=== PATIENT | male | born 1955 | race Caucasian/White ===

== ENCOUNTER 2025-05-18 09:30 | Observation (INO) ==
--- NOTE | 2025-05-18 09:38 | Emergency Department Note ---
Impression & Plan Hypotension, Syncope, SHEY (acute kidney injury) ED Provider Note NAME: OLGA DAMIAN AGE: 70 SEX: M : 1955 ARRIVES VIA: Ambulance INFORMANT: Patient ED PROVIDER(S): Ever Rivers DO CHIEF COMPLAINT: Syncope HPI: Patient is a 70-year-old male who presents to the ER for a syncopal episode. He notes that he got up and stood up and felt very lightheaded and passed out. He admits to feeling foggy in the head. No neck pain. No chest pain or shortness of breath. No belly pain. No nausea at this time but did have nausea and vomiting after this occurred. Denies any dysuria, urgency or frequency. No other exacerbating or remitting factors. ADDITIONAL HISTORY OBTAINED: Per HPI Chronic Medical/Social Conditions Affecting Care: Per HPI PAST MEDICAL HISTORY:See Below PAST SURGICAL HISTORY:See Below FAMILY HISTORY:See Below SOCIAL HISTORY:See Below HOME MEDICATIONS:See Below ALLERGIES:See Below VITALS:See Below PHYSICAL EXAMINATION: GENERAL: Sitting up in bed, alert, well appearing, well nourished, no distress, non-toxic HEAD: NC/AT EYE EXAM: normal conjunctiva. PERRL and EOM's grossly intact. OROPHARYNX: no exudate, no erythema, lips, buccal mucosa, and tongue normal and mucous membranes are moist NECK: supple, no nuchal rigidity, no adenopathy, non-tender LUNGS: Clear to auscultation. Normal chest wall mechanics HEART: no murmurs, S1 normal and S2 normal ABDOMEN: abdomen soft, non-tender, normo-active bowel sounds, no masses, no rebound or guarding. BACK: Back is symmetrical on inspection and there is no deformity, no midline tenderness, no CVA tenderness. SKIN: no rashes and no bruising UPPER EXTREMITIES: upper extremities are grossly normal. LOWER EXTREMITIES: No pitting edema. NEURO EXAM: Normal sensorium, cranial nerves II-XII intact, normal speech, no weakness of arms, no weakness of legs. No drift. Finger to nose intact. Gross sensation intact. MEDICAL DECISION MAKING: Patient is a 70-year-old male with a past medical history of syncope who presents ER for the above-stated complaint. Additional history was obtained from EMS. Patient was hypotensive upon their arrival in the 60s. IV was established and blood work was obtained here. Labs showed no significant leukocytosis or anemia. BMP with slightly elevated BUN. Creatinine 1.8 with no previous to go off of. LFTs bilirubin and troponin was negative. Pro-Jamil was normal. CT of the head cervical spine and chest showed a pulmonary nodule/possible infectious etiology. Patient was covered with IV antibiotics. He was given total of 2-1/2 L of IV fluids while in the ER. Blood pressures trended up to the 90s to low 100s and gradually improved from the 70s. Maps were appropriate of 65-70 during this. Case was discussed with the hospitalist for further evaluation management treatment. Consults/Care Managements Discussions: Per [facility] Triage Nursing notes reviewed. Limited review of prior medical records performed Vital Signs: reviewed and remarkable for no significant abnormalities Differential diagnosis: Differential diagnosis includes etiologies such as vasovagal event, infection, hypoglycemia, electrolyte abnormalities, cardiac sources, intracerebral event, toxicologic, neurologic, as well as others were entertained. ER treatment provided: See below Diagnostics interpreted by me include EKG and cardiac monitoring as listed below: -Cardiac Monitoring: An order was placed for continuous cardiac monitoring. The monitor shows a rate of 88 with sinus rhythm. -ECG: Sinus rhythm rate 86 Normal axis Right bundle branch block ST depressions in the inferior leads QTc 449 -Laboratory studies:Interpreted by me as stated above in MDM and shown below. Imaging studies: Xrays: As interpreted by me: Portable AP upright 1 view of the chest shows no focal infiltrate CT head cervical spine and chest as described above Procedures:none Critical Care: I have personally spent 55 minutes of critical care time in the direct management of this patient. This includes bedside care, interpretation of diagnostic studies, and testing, discussion with consultants, patient, and family members, and other required patient management activities. This 55 minutes is in excess of all separately billable procedures. Past Med/Surg History Problem List (Updated 05/18/25 @ 14:19 by Ever Rivers DO) Hypotension (Acute) Pulmonary nodule Hyperglycemia SHEY (acute kidney injury) (Acute) Syncope (Acute) Medical History (Updated 05/18/25 @ 14:19 by Ever Rivers DO) ADHD History of supraventricular tachycardia GERD (gastroesophageal reflux disease) Hyperlipidemia Hypertension Elevated PSA Depression Prediabetes Surgical History (Updated 05/18/25 @ 12:16 by SANTA Thomas) S/P ablation operation for arrhythmia for SVT in 2018 Family History (Updated 05/18/25 @ 12:17 by SANTA Thomas) Mother CHF (congestive heart failure) Father CHF (congestive heart failure) Social History (Updated 05/18/25 @ 12:18 by SANTA Thomas) Smoking Status: Former smoker Tobacco Type: Cigarettes Age Started Using Tobacco: 29; Age Quit Using Tobacco: 49; packs per day: 1; Hx Alcohol Use: No Hx Substance Use: No Preferred Language: Togolese Communication Ability: Effective Parking Analyst Required: No Beliefs That Will Affect Care: None Current Living Situation: Alone Other Information That Helps Us Care for You: No Feels Safe at Home: Yes Physical Activity Frequency: 3-4 Times per Week Assistive Devices: Glasses and Hearing Aid - Bilateral Allergies Allergies Allergy/AdvReac Type Severity Reaction Status Date / Time codeine Allergy Itching Verified 05/18/25 12:11 Home Meds Home Medications Medication Instructions Recorded Confirmed aspirin 81 mg tablet 81 mg PO DAILY 05/18/25 05/18/25 bupropion HCl 300 mg 24 hr tablet, 300 mg PO DAILY 05/18/25 05/18/25 extended release dextroamphetamine-amphetamine ER 30 mg PO BID 05/18/25 05/18/25 30 mg 24hr capsule,extend release lisinopril 20 mg tablet 20 mg PO DAILY 05/18/25 05/18/25 meloxicam 15 mg tablet 15 mg PO DAILY PRN Pain 05/18/25 05/18/25 omeprazole 40 mg capsule,delayed 40 mg PO DAILY 05/18/25 05/18/25 release semaglutide 1 mg/dose (4 mg/3 mL) 0 mg subcut 05/18/25 subcutaneous pen injector (Ozempic) tamsulosin 0.4 mg capsule 0.8 mg PO HS 05/18/25 05/18/25 Results & Data (ED) Vital Signs Vital Signs - 24 hr 05/18/25 09:23 05/18/25 09:23 05/18/25 09:38 Temperature 36.6 C Temperature Source Oral Pulse Rate 86 86 Pulse Rate from SpO2 Sensor Respiratory Rate 23 Respiratory Depth Normal Blood Pressure 66/57 L Blood Pressure Mean 60 Pulse Oximetry 95 Oxygen Delivery Method Room Air Sepsis Recent Fever Within 48 Hours No Sepsis New/Unexplained Change in Mental Status No Sepsis Action Taken by Nursing Physician Notified 05/18/25 09:39 05/18/25 09:42 05/18/25 09:50 Temperature Temperature Source Pulse Rate 89 85 Pulse Rate from SpO2 Sensor 89 86 Respiratory Rate 17 12 Respiratory Depth Blood Pressure 99/63 L 88/66 L 88/66 L Blood Pressure Mean 75 73 73 Pulse Oximetry 94 94 Oxygen Delivery Method Sepsis Recent Fever Within 48 Hours Sepsis New/Unexplained Change in Mental Status Sepsis Action Taken by Nursing 05/18/25 09:55 05/18/25 10:12 05/18/25 10:15 Temperature Temperature Source Pulse Rate 88 Pulse Rate from SpO2 Sensor 88 Respiratory Rate 23 Respiratory Depth Blood Pressure 96/62 L 111/65 95/59 L Blood Pressure Mean 72 80 62 Pulse Oximetry 94 Oxygen Delivery Method Sepsis Recent Fever Within 48 Hours Sepsis New/Unexplained Change in Mental Status Sepsis Action Taken by Nursing 05/18/25 10:24 05/18/25 10:27 05/18/25 10:36 Temperature Temperature Source Pulse Rate 88 89 90 Pulse Rate from SpO2 Sensor 89 89 89 Respiratory Rate 15 16 15 Respiratory Depth Blood Pressure 88/59 L 88/59 L Blood Pressure Mean 68 68 Pulse Oximetry 93 94 96 Oxygen Delivery Method Sepsis Recent Fever Within 48 Hours Sepsis New/Unexplained Change in Mental Status Sepsis Action Taken by Nursing Laboratory Data 05/18/25 09:39 05/18/25 09:39 Lab Results 05/18/25 05/18/25 05/18/25 Range/Units 09:39 09:42 09:43 WBC 10.54 (4.8-10.8) K/ul RBC 5.41 (4.70-6.10) M/uL Hgb 16.3 (14.0-18.0) g/dl POC Hgb 16.3 (14.0-18.0) g/dl Hct 47.4 (42.0-52.0) % POC Hct 48 (42-52) % MCV 87.6 (80.0-100.0) fL MCH 30.1 (25.0-34.0) pg MCHC 34.4 (32.0-36.0) g/dL RDW Std Deviation 43.5 (36.4-46.3) fL RDW Coeff of Kita 13.5 (11.5-14.5) % Plt Count 228 (130-400) K/uL MPV 9.0 L (9.4-12.4) fL Immature Gran % (Auto) 0.5 % Neut % (Auto) 82.9 % Lymph % (Auto) 9.3 % [place] % (Auto) 6.5 % Eos % (Auto) 0.2 % Baso % (Auto) 0.6 % Neut # (Auto) 8.74 H (1.40-6.50) K/uL Lymph # (Auto) 0.98 L (1.20-3.40) K/uL [place] # (Auto) 0.69 H (0.11-0.59) K/uL Eos # (Auto) 0.02 (0.00-0.50) K/uL Baso # (Auto) 0.06 (0.00-0.20) K/uL Immature Gran # (Auto) 0.05 (0.01-0.20) K/uL POC Sodium 139 (135-144) mmol/L Sodium 140 (136-145) mmol/L POC Potassium 3.9 (3.3-5.0) mmol/L Potassium 3.9 (3.5-5.1) mmol/L POC Chloride 104 (101-112) mmol/L Chloride 105 (98-107) mmol/L Carbon Dioxide 24 (21-32) mmol/L POC Total CO2 21 L (24-31) mmol/L Anion Gap 11 (3-11) POC Anion Gap 19.0 (16-25) mmol/L POC BUN 30 H (7-18) mg/dl BUN 30 H (6-23) mg/dl Creatinine 1.86 H (0.6-1.4) mg/dl POC Creatinine 1.9 H (0.6-1.3) mg/dl Est Cr Clr Drug Dosing 39.3 ml/min eGFR 38.69 BUN/Creatinine Ratio 16.1 (10-20) Glucose 171 H (70-99(Fasting)) mg/dl POC Glucose (other) 167 H (70-99) mg/dl Estimat Average Glucose 111 mg/dl Hemoglobin A1c 5.5 (4.5-5.6) % Lactate 1.5 (0.4-2.0) mmol/L Calcium 8.8 (8.6-10.3) mg/dl POC Ioniz Calcium Bianca 1.08 L (1.12-1.32) mmol/l Phosphorus 4.2 (2.5-4.9) mg/dl Magnesium 1.6 L (1.7-2.4) mg/dl Total Bilirubin 0.9 (0.2-1.0) mg/dl AST 14 (13-39) U/L ALT 12 (7-52) U/L Alkaline Phosphatase 59 (34-104) U/L Troponin I High Sens 7.8 (0-20) pg/ml Total Protein 6.4 (6.0-8.3) gm/dl Albumin 3.7 (3.4-5.0) gm/dl Globulin 2.7 (2.5-4.0) gm/dl Albumin/Globulin Ratio 1.4 (0.9-2) Lipase 14 (11-82) U/L Procalcitonin 0.14 (0-0.5) ng/ml TSH 6.917 H (0.300-4.500) uIu/ml Free T4 1.28 (0.61-1.60) ng/dl Administered Medications Sodium Chloride (Nss) 1,000 mls @ 125 mls/hr IV .Q8H CHRISTINE Stop: 05/19/25 04:59 Last Admin: 05/18/25 13:21 Dose: 125 mls/hr Documented By: YESI Magnesium Sulfate/Dextrose (Magnesium Sulfate / D5w) 1 gm in 100 mls @ 50 mls/hr IV Q2H CHRISTINE Stop: 05/18/25 17:14 Last Admin: 05/18/25 13:21 Dose: 50 mls/hr Documented By: YESI Discontinued Medications Sodium Chloride (Nss) 1,000 mls @ 999 mls/hr IV .Q1H1M COUNTS INCLUDE 234 BEDS AT THE [facility] Stop: 05/18/25 11:45 Last Infusion: 05/18/25 10:54 Dose: Infused Documented By: Admin: 05/18/25 09:54 Dose: 999 mls/hr Documented By: Infusion: 05/18/25 09:54 Dose: Infused Documented By: Admin: 05/18/25 09:54 Dose: 999 mls/hr Documented By: JUNE Piperacillin Sod/Tazobactam Sod (Zosyn) 4.5 gm in 100 mls @ 200 mls/hr IV NOW ONE; Protocol Stop: 05/18/25 11:20 Last Infusion: 05/18/25 13:16 Dose: Infused Documented By: Admin: 05/18/25 12:12 Dose: 200 mls/hr Documented By: YESI Ioversol (Optiray 320 125ml) 120 ml IV ONCE ONE Stop: 05/18/25 10:03 Last Admin: 05/18/25 10:03 Dose: 120 ml Documented By: SUNITA Miscellaneous Information (Patient's Allergy Info Needs Entered) 1 each N/A NOW STA Stop: 05/18/25 12:08 Last Admin: 05/18/25 12:12 Dose: 1 each Documented By: YESI Imaging Data Radiologist's Impression: Chest X-Ray 05/18/25 09:35 XR chest 1V portable CLINICAL HISTORY: Chest pain, nonspecific COMPARISON STUDY: None FINDINGS: Heart size and pulmonary vasculature are normal. No consolidation or pleural effusion. No pneumothorax. IMPRESSION: No acute findings. ACT 112: Negative or not required by law. Electronically signed by: Edgard Justice M.D. 05/18/2025 9:[address] 05/18/25 09:35 CT head/brain wo con CLINICAL HISTORY: hunt/syncope. TECHNIQUE: Multiple axial CT images of the head were obtained without contrast. A dose lowering technique was utilized adhering to the principles of ALARA. CT DOSE: 2043.4 mGy.cm COMPARISON: None FINDINGS: No intracranial hemorrhage seen. No mass effect, midline shift, or hydrocephalus. No skull fracture seen. Visualized paranasal sinuses and mastoid air cells are clear. IMPRESSION: No acute findings. ACT 112: Negative or not required by law. The above report was generated using voice recognition software. It may contain grammatical, syntax or spelling errors. Electronically signed by: Edgard Justice M.D. 05/18/2025 10:[address] 05/18/25 09:55 CT cervical spine wo con CLINICAL HISTORY: 70 years-old Male with syncope. Acute neck pain status post syncope with hypertension COMPARISON: Head CT of same day TECHNIQUE: Multiple axial CT images of the cervical spine were obtained without contrast. A dose lowering technique was utilized adhering to the principles of ALARA. FINDINGS: Straightening of the normal cervical lordosis. Multilevel degenerative changes include moderate to severe disc space narrowing at several levels along with severe multilevel facet arthrosis. Multilevel central canal and neural foraminal stenosis, suboptimally evaluated by CT technique. Atherosclerosis of the carotid bulbs. The cervical soft tissues appear unremarkable. Multinodular thyroid. The visualized lung apices appear clear. IMPRESSION: No acute cervical spine fracture or subluxation. ACT 112: Negative or not required by law. The above report was generated using voice recognition software. It may contain grammatical, syntax or spelling errors. Electronically signed by: Cortez Mendoza M.D. 05/18/2025 10:33 AM Chest CTA 05/18/25 09:55 CT ANGIOGRAM OF THE CHEST CLINICAL HISTORY: Syncope. Hypotension. Evaluate for pulmonary embolus. COMPARISON STUDY: Chest radiograph May 18, 2025. TECHNIQUE: Following the IV administration of 120 cc of Optiray 320, CT angiogram of the chest was performed from the upper abdomen to the thoracic inlet utilizing the pulmonary embolus protocol. Images are reviewed in the axial, sagittal, and coronal planes. 3-D MIPS images are created and assessed. IV contrast was administered without complication. A dose lowering technique was utilized adhering to the principles of ALARA. FINDINGS: No pulmonary emboli are identified. There is no thoracic aortic dissection. The heart is moderately enlarged. There is no pericardial effusion. There is moderate coronary artery calcification. Central airways are patent. No pneumothorax or pleural effusion is present. Note is made of a lobulated cavitary 2.2 x 1.4 cm right lower lobe nodular opacity on image 119 of 226. Ground glass opacities within the lungs favor atelectasis. Central airways are patent. Slight loss of height of the superior endplate of T5 is likely chronic. No acute fractures are identified within the visualized ribs. There are no acute thoracic spine fractures. The stomach is mildly distended and fluid-filled. IMPRESSION: 1. No pulmonary emboli identified. 2. Moderate cardiomegaly and coronary artery calcification. 3. Lobulated cavitary 2.2 x 1.4 cm right lower lobe nodular opacity. This is indeterminate and could be infectious or neoplastic. A short-term follow-up chest CT in one month is recommended. ACT 112: Positive. There are findings on this exam that require communication between the performing entity and the patient following Patient Test Result Information Act ([place] Act 112) guidelines. Electronically signed by: Frederick Agudelo M.D. 05/18/2025 10:32 AM Discharge Plan Visit Data Chief Complaint: Unresponsive ED Provider: Ever Rivers Discharge Problem: Hypotension, Syncope, SHEY (acute kidney injury) Patient Disposition: Admitted As Inpatient Condition: Serious Discharge Instructions Interventions: ED Discharge Assessment Last Done: 05/18/25 11:56 Discharge Problem: Hypotension Qualifiers: Hypotension type: unspecified hypotension type Qualified Code(s): I95.9 - Hypotension, unspecified Syncope Qualifiers: Syncope type: unspecified Qualified Code(s): R55 - Syncope and collapse
[2025-05-18] MEDS: SODIUM CHLORIDE 0.9% 1,000 ML IV SCH ×2 (09:54→13:21)
--- NOTE | 2025-05-18 09:55 | XRay Report ---
XR chest 1V portable CLINICAL HISTORY: Chest pain, nonspecific COMPARISON STUDY: None FINDINGS: Heart size and pulmonary vasculature are normal. No consolidation or pleural effusion. No p neumothorax. IMPRESSION: No acute findings. ACT 112: Negative or not required by law. Electronically signed by: Edgard Justice M.D. 05/18/2025 9:53 AM
[2025-05-18 10:02] LABS: Hematocrit (blood only) 47.4 % (42.0-52.0); Hemoglobin 16.3 g/dl (14.0-18.0); Immature Granulocytes # (auto) 0.05 K/uL (0.01-0.20); Immature Granulocytes % (auto) 0.5 %; Mean Corpuscular Hemoglobin 30.1 pg (25.0-34.0); Mean Corpuscular Volume 87.6 fL (80.0-100.0); Platelet Count 228 K/uL (130-400); RDW Standard Deviation 43.5 fL (36.4-46.3); Red Blood Count 5.41 M/uL (4.70-6.10); White Blood Count 10.54 K/ul (4.8-10.8)
[2025-05-18] MEDS: OPTIRAY 320 125ml IV ONE (10:03)
--- NOTE | 2025-05-18 10:17 | CT Scan Report ---
CT head/brain wo con CLINICAL HISTORY: hunt/syncope. TECHNIQUE: Multiple axial CT images of the head were obtained without contrast. A dose lowering tech nique was utilized adhering to the principles of ALARA. CT DOSE: 2043.4 mGy.cm COMPARISON: None FINDINGS: No intracranial hemorrhage seen. No mass effect, midline shift, or hydrocephalus. No skull fracture seen. Visualized paranasal sinuses and mastoid air cells are clear. IMPRESSION: No acute findings. ACT 112: Negative or not required by law. The above report was generated using voice recognition software. It may contain grammatical, syntax o r spelling errors. Electronically signed by: Edgard Justice M.D. 05/18/2025 10:15 AM
[2025-05-18 10:29] LABS: Alanine Aminotransferase 12.0 U/L (7-52); Albumin Globulin Ratio 1.4 (0.9-2); Albumin Level 3.7 gm/dl (3.4-5.0); Alkaline Phosphatase 59.0 U/L (34-104); Anion Gap 11.0 (3-11); Bilirubin,Total 0.9 mg/dl (0.2-1.0); Blood Urea Nitrogen 30.0 mg/dl (6-23); Calcium 8.8 mg/dl (8.6-10.3); Carbon Dioxide 24.0 mmol/L (21-32); Chloride 105.0 mmol/L (98-107); Creatinine Clr Calc Pharmacy 39.3 ml/min; Globulin 2.7 gm/dl (2.5-4.0); Glucose 171.0 mg/dl (70-99(Fasting)); Lipase 14.0 U/L (11-82); Potassium 3.9 mmol/L (3.5-5.1); Sodium 140.0 mmol/L (136-145); Total Protein 6.4 gm/dl (6.0-8.3)
--- NOTE | 2025-05-18 10:34 | CT Scan Report ---
CT ANGIOGRAM OF THE CHEST CLINICAL HISTORY: Syncope. Hypotension. Evaluate for pulmonary embolus. COMPARISON STUDY: Chest radiograph May 18, 2025. TECHNIQUE: Following the IV administration of 120 cc of Optiray 320, CT angiogram of the chest was pe rformed from the upper abdomen to the thoracic inlet utilizing the pulmonary embolus protocol. Images are reviewed in the axial, sagittal, and coronal planes. 3-D MIPS images are created and assessed. I V contrast was administered without complication. A dose lowering technique was utilized adhering to the principles of ALARA. FINDINGS: No pulmonary emboli are identified. There is no thoracic aortic dissection. The heart is mo derately enlarged. There is no pericardial effusion. There is moderate coronary artery calcification. Central airways are patent. No pneumothorax or pleural effusion is present. Note is made of a lobula kendall cavitary 2.2 x 1.4 cm right lower lobe nodular opacity on image 119 of 226. Ground glass opacitie s within the lungs favor atelectasis. Central airways are patent. Slight loss of height of the superi or endplate of T5 is likely chronic. No acute fractures are identified within the visualized ribs. Th ere are no acute thoracic spine fractures. The stomach is mildly distended and fluid-filled. IMPRESSION: 1. No pulmonary emboli identified. 2. Moderate cardiomegaly and coronary artery calcification. 3. Lobulated cavitary 2.2 x 1.4 cm right lower lobe nodular opacity. This is indeterminate and could be infectious or neoplastic. A short-term follow-up chest CT in one month is recommended. ACT 112: Positive. There are findings on this exam that require communication between the performing entity and the patient following Patient Test Result Information Act ([place] Act 112) guidelines. Electronically signed by: Frederick Agudelo M.D. 05/18/2025 10:32 AM
--- NOTE | 2025-05-18 10:35 | CT Scan Report ---
CT cervical spine wo con CLINICAL HISTORY: 70 years-old Male with syncope. Acute neck pain status post syncope with hypertens ion COMPARISON: Head CT of same day TECHNIQUE: Multiple axial CT images of the cervical spine were obtained without contrast. A dose low ering technique was utilized adhering to the principles of ALARA. FINDINGS: Straightening of the normal cervical lordosis. Multilevel degenerative changes include mode rate to severe disc space narrowing at several levels along with severe multilevel facet arthrosis. M ultilevel central canal and neural foraminal stenosis, suboptimally evaluated by CT technique. Athero sclerosis of the carotid bulbs. The cervical soft tissues appear unremarkable. Multinodular thyroid. The visualized lung apices appear clear. IMPRESSION: No acute cervical spine fracture or subluxation. ACT 112: Negative or not required by law. The above report was generated using voice recognition software. It may contain grammatical, syntax o r spelling errors. Electronically signed by: Cortez Mendoza M.D. 05/18/2025 10:33 AM
--- NOTE | 2025-05-18 11:04 | History & Physical Report ---
Date of Service May 18, 2025 Assessment & Plan (1) Syncope: (2) Hypotension: (3) SHEY (acute kidney injury): (4) Hyperglycemia: (5) Pulmonary nodule: Plan 70 year old male with PMH significant for prediabetes, hypertension, history of SVT s/p ablation (2018), history of hyperlipidemia, depression, ADHD, elevated PSA, JULIET on CPAP and GERD who presented to the ED on 05/18/2025 after a syncopal episode this morning. Syncope Patient presenting with syncopal episode likely due to dehydration iso poor PO intake since yesterday Head and cervical spine CT negative Chest CTA negative for PE Labs unremarkable aside from creat 1.86 EKG unremarkable Received 2L NSS in ED Plan: -Admit to [facility] and monitor telemetry -Orthostatic vitals qshift -Obtain echo -Urine drug screen -AM cortisol -Follow blood cultures obtained in ED Hypotension BP 80-90/50-60s in ED Improving after 2L NSS in ED Continue IVF at 125mL/hr Hold home lisinopril Monitor BP closely SHEY Creat 1.86, unknown baseline but patient denies chronic kidney disease Likely secondary to dehydration Continue IVF Hold home meloxicam Recheck BMP in am Hyperglycemia Prediabetes Glucose 171 on arrival A1C 5.5% Obtain lipid panel in am Patient notes he is no longer taking statin due to improved cholesterol levels Pulmonary nodule History of tobacco use CT chest revealed lobulated cavitary 2.2x1.4cm RLL nodular opacity could be infectious or neoplastic - recommend chest CT in one month Labs and review of systems not concerning for infection Received one dose of zosyn in ED - discontinue Advise PCP follow up outpatient with CT scan in one month as recommended JULIET on CPAP CPAP HS GERD Continue PPI Elevated PSA Patient notes PSA of 6.1 Following with Urology outpatient Continue Flomax DVT Prophylaxis: SQ Heparin Code Status: FULL CODE - As per discussion at bedside with the patient. PCP: Yolis Deleon of [facility] Disposition: admit to [facility] Patient seen in collaboration with Dr. Mejia. Please see addendum. I spent a total of 70 minutes coordinating, documenting and providing care for this patient excluding time spent in the performance of separately billed services or time spent by another provider/QHP. Admission and Anticipated Discharge Date Admission Date: 05/18/2025 History of Present Illness Chief Complaint: syncope Primary Care Provider: YOLIS DELEON 70 year old male with PMH significant for prediabetes, hypertension, history of SVT s/p ablation (2018), hyperlipidemia, depression, ADHD, elevated PSA, JULIET on CPAP and GERD who presented to the ED on 05/18/2025 after a syncopal episode this morning. Patient is from [place], [place] and traveled to [place] yesterday for a local conference. He reports all he consumed yesterday was coffee and woke up this morning feeling dizzy. After waking, he took a shower where he had to sit down because of dizziness. He went to a colleague's hotel to get breakfast with her and consumed orange juice, coffee, and two glasses of water. Notes fe eling weak with walking. Continued to feel dizzy after breakfast and attempted to walk back to colleague's hotel room to rest. Stopped along the way to lean against a counter while his colleague went to get him a wheelchair. He had a syncopal episode while waiting for the wheelchair. Colleague did not witness the fall but heard it. Colleague reports it took patient 90 seconds to regain consciousness. He appeared pale. She helped him to her hotel room and notes he was "in and out." He was being evaluated by medical staff when he had one episode of vomiting. Brought to the ED for further evaluation. In the ED, patient notes he is feeling much better. He reports he does not do a good job of hydrating and notes this is his third episode of getting dizzy because of dehydration. He usually can drink a lot of water and the dizziness will resolve. This is the first time he has ever passed out. Currently denies dizziness, lightheadedness, chest pain, SOB, abdominal pain, N/V, fevers, chills, cough, cold symptoms, night sweats, unintentional weight loss. He denies any cardiac disease aside from history of SVT s/p ablation. Notes family history of CHF. Reports recent elevated PSA level for which he is following with Urology outpatient. Allergies Allergy/AdvReac Type Severity Reaction Status Date / Time codeine Allergy Itching Verified 05/18/25 12:11 Home Medications Medication Instructions Recorded Confirmed Type aspirin 81 mg tablet 81 mg PO DAILY 05/18/25 05/18/25 History bupropion HCl 300 mg 24 hr tablet, 300 mg PO DAILY 05/18/25 05/18/25 History extended release dextroamphetamine-amphetamine ER 30 mg PO BID 05/18/25 05/18/25 History 30 mg 24hr capsule,extend release lisinopril 20 mg tablet 20 mg PO DAILY 05/18/25 05/18/25 History meloxicam 15 mg tablet 15 mg PO DAILY PRN Pain 05/18/25 05/18/25 History omeprazole 40 mg capsule,delayed 40 mg PO DAILY 05/18/25 05/18/25 History release semaglutide 1 mg/dose (4 mg/3 mL) 0 mg subcut 05/18/25 History subcutaneous pen injector (Ozempic) tamsulosin 0.4 mg capsule 0.8 mg PO HS 05/18/25 05/18/25 History Past Med/Surg History Problem List (Updated 05/18/25 @ 14:19 by Ever Rivers DO) Hypotension (Acute) Pulmonary nodule Hyperglycemia SHEY (acute kidney injury) (Acute) Syncope (Acute) Medical History (Updated 05/18/25 @ 14:19 by Ever Rivers DO) ADHD History of supraventricular tachycardia GERD (gastroesophageal reflux disease) Hyperlipidemia Hypertension Elevated PSA Depression Prediabetes Surgical History (Updated 05/18/25 @ 12:16 by SANTA Thomas) S/P ablation operation for arrhythmia for SVT in 2018 Family History (Updated 05/18/25 @ 12:17 by SANTA Thomas) Mother CHF (congestive heart failure) Father CHF (congestive heart failure) Social History (Updated 05/18/25 @ 12:18 by SANTA Thomas) Smoking Status: Former smoker Tobacco Type: Cigarettes Age Started Using Tobacco: 29; Age Quit Using Tobacco: 49; packs per day: 1; Hx Alcohol Use: No Hx Substance Use: No Preferred Language: Kyrgyz Communication Ability: Effective Retail Salesperson Required: No Beliefs That Will Affect Care: None Current Living Situation: Alone Other Information That Helps Us Care for You: No Feels Safe at Home: Yes Physical Activity Frequency: 3-4 Times per Week Assistive Devices: Glasses and Hearing Aid - Bilateral Review of Systems Review of Systems: All systems reviewed & are unremarkable except as noted in HPI & below Physical Exam Physical Exam: General/Psych: WD/WN, sitting up in bed, NAD, conversing easily Head: normocephalic, atraumatic Eyes: normal inspection, PERRL, conjunctivae pink ENT: external ear and nose normal, oropharynx normal Neck: normal visual inspection, trachea midline Respiratory: normal respiratory effort, lungs clear to auscultation, no wheeze/rales/rhonchi, no accessory muscle use Cardiovascular: regular rate and rhythm, no murmur/rub/gallop Extremities: no cyanosis or clubbing, normal peripheral pulses, no BLE edema Abdomen/GI: normal bowel sounds, soft, nontender Neurologic/MSK: A+Ox3, motor strength 5/5, moves all extremities Skin: no rashes, normal color, warm and dry Results & Data Results & Data Vital Signs (Past 12 Hours) Vital Signs Temp Pulse Resp BP Pulse Ox O2 Del Method 05/18/25 10:36 90 15 88/59 L 96 05/18/25 10:27 89 16 88/59 L 94 05/18/25 10:24 88 15 93 05/18/25 10:15 95/59 L 05/18/25 10:12 88 23 111/65 94 05/18/25 09:55 96/62 L 05/18/25 09:50 88/66 L 05/18/25 09:42 85 12 88/66 L 94 05/18/25 09:39 89 17 99/63 L 94 05/18/25 09:38 86 05/18/25 09:23 Room Air 05/18/25 09:23 36.6 C 86 23 66/57 L 95 Laboratory Results Short CBC 05/18/25 Range/Units 09:39 WBC 10.54 (4.8-10.8) K/ul Hgb 16.3 (14.0-18.0) g/dl Hct 47.4 (42.0-52.0) % Plt Count 228 (130-400) K/uL BMP 05/18/25 09:39 Sodium 140 Potassium 3.9 Chloride 105 Carbon Dioxide 24 BUN 30 H Creatinine 1.86 H Glucose 171 H Calcium 8.8 Liver Function 05/18/25 Range/Units 09:39 Total Bilirubin 0.9 (0.2-1.0) mg/dl AST 14 (13-39) U/L ALT 12 (7-52) U/L Alkaline Phosphatase 59 (34-104) U/L Albumin 3.7 (3.4-5.0) gm/dl I have independently reviewed and interpreted patient's admitting labs including CBC, CMP, lactate, troponin, lipase, procalcitonin. Diagnostic Findings Chest X-Ray 05/18/25 09:35 XR chest 1V portable CLINICAL HISTORY: Chest pain, nonspecific COMPARISON STUDY: None FINDINGS: Heart size and pulmonary vasculature are normal. No consolidation or pleural effusion. No pneumothorax. IMPRESSION: No acute findings. ACT 112: Negative or not required by law. Electronically signed by: Edgard Justice M.D. 05/18/2025 9:[address] 05/18/25 09:35 CT head/brain wo con CLINICAL HISTORY: hunt/syncope. TECHNIQUE: Multiple axial CT images of the head were obtained without contrast. A dose lowering technique was utilized adhering to the principles of ALARA. CT DOSE: 2043.4 mGy.cm COMPARISON: None FINDINGS: No intracranial hemorrhage seen. No mass effect, midline shift, or hydrocephalus. No skull fracture seen. Visualized paranasal sinuses and mastoid air cells are clear. IMPRESSION: No acute findings. ACT 112: Negative or not required by law. The above report was generated using voice recognition software. It may contain grammatical, syntax or spelling errors. Electronically signed by: Edgard Justice M.D. 05/18/2025 10:[address] 05/18/25 09:55 CT cervical spine wo con CLINICAL HISTORY: 70 years-old Male with syncope. Acute neck pain status post syncope with hypertension COMPARISON: Head CT of same day TECHNIQUE: Multiple axial CT images of the cervical spine were obtained without contrast. A dose lowering technique was utilized adhering to the principles of ALARA. FINDINGS: Straightening of the normal cervical lordosis. Multilevel degenerative changes include moderate to severe disc space narrowing at several levels along with severe multilevel facet arthrosis. Multilevel central canal and neural foraminal stenosis, suboptimally evaluated by CT technique. Atherosclerosis of the carotid bulbs. The cervical soft tissues appear unremarkable. Multinodular thyroid. The visualized lung apices appear clear. IMPRESSION: No acute cervical spine fracture or subluxation. ACT 112: Negative or not required by law. The above report was generated using voice recognition software. It may contain grammatical, syntax or spelling errors. Electronically signed by: Cortez Mendoza M.D. 05/18/2025 10:33 AM Chest CTA 05/18/25 09:55 CT ANGIOGRAM OF THE CHEST CLINICAL HISTORY: Syncope. Hypotension. Evaluate for pulmonary embolus. COMPARISON STUDY: Chest radiograph May 18, 2025. TECHNIQUE: Following the IV administration of 120 cc of Optiray 320, CT angiogram of the chest was performed from the upper abdomen to the thoracic inlet utilizing the pulmonary embolus protocol. Images are reviewed in the axial, sagittal, and coronal planes. 3-D MIPS images are created and assessed. IV contrast was administered without complication. A dose lowering technique was utilized adhering to the principles of ALARA. FINDINGS: No pulmonary emboli are identified. There is no thoracic aortic dissection. The heart is moderately enlarged. There is no pericardial effusion. There is moderate coronary artery calcification. Central airways are patent. No pneumothorax or pleural effusion is present. Note is made of a lobulated cavitary 2.2 x 1.4 cm right lower lobe nodular opacity on image 119 of 226. Ground glass opacities within the lungs favor atelectasis. Central airways are patent. Slight loss of height of the superior endplate of T5 is likely chronic. No acute fractures are identified within the visualized ribs. There are no acute thoracic spine fractures. The stomach is mildly distended and fluid-filled. IMPRESSION: 1. No pulmonary emboli identified. 2. Moderate cardiomegaly and coronary artery calcification. 3. Lobulated cavitary 2.2 x 1.4 cm right lower lobe nodular opacity. This is indeterminate and could be infectious or neoplastic. A short-term follow-up chest CT in one month is recommended. ACT 112: Positive. There are findings on this exam that require communication between the performing entity and the patient following Patient Test Result Information Act ([place] Act 112) guidelines. Electronically signed by: Frederick Agudelo M.D. 05/18/2025 10:32 AM ECG Additional Comments: I have independently reviewed and interpreted patient's admitting EKG which revealed: NSR and RBBB at a rate of 86bpm Code Status & VTE Plan Code Status Full Code Supervising Physician Co-Signing Physician Notes Patient seen and examined at bedside. Patient doing well today. Accompanied by friend. Was feeling lightheaded this morning. Fell over while leaning on wall, witnessed by friend. Happens a few times a year. Very poor PO intake. On exam, hypotensive but improving, dry mucous membranes. Creatinine 1.86 without known baseline, Mg of 1.6 replenished, ECG with RBBB (no comparison). Chest CTA revealing right lower lobe cavitary lesion. Troponin WNL. Presentation consistent syncope 2/2 poor PO intake and dehydration in setting of BP medication use. Other considerations would be arrhythmia, aortic stenosis, drug use, seizure/stroke less likely given witnessed syncope without shaking and no focal deficits. Continue IV hydration, check echo, drug screen, TSH/AM cortisol for metabolic workup, hold home BP meds. Will need f/u outpatient for RLL cavitary lesion on imaging, will likely need biospy. No indication for abx at this time given no cough, leukocytosis or hemodynamic changes consistent with infectious process. Monitor overnight, if medically stable likely ok for discharge tomorrow morning. I have seen and discussed the case with the collaborating advanced practitioner. I agree with the above H&P. I have reviewed and confirmed the patients medical history, the findings on physical examination, and the patients diagnosis and treatment plan with Bela PRATT and agree with the information documented. I spent a total of 20 minutes coordinating, documenting, and providing care for this patient excluding time spent in the performance of separately billed services. All of the aforementioned completed outside of collaborating with the assigned advanced practitioner for a full treatment plan. I have reviewed the advanced practitioner's documentation, and I agree with, and take responsibility for the plan of care
[2025-05-18 11:31] LABS: Magnesium 1.6 mg/dl (1.7-2.4)
[2025-05-18 11:47] LABS: Thyroid Stimulating Hormone 6.917 uIu/ml (0.300-4.500)
[2025-05-18] MEDS ORDERED: ONDANSETRON INJ 2 MG/ML 2 ML VIAL IV PRN (11:56)
[2025-05-18] MEDS ORDERED: ACETAMINOPHEN 325 MG TAB PO PRN (11:56)
[2025-05-18] MEDS: PIPERACILLIN/TAZOBACTAM 4.5 GM/100 ML BAG IV ONE (12:12)
[2025-05-18 12:22] LABS: T4 Free Thyroxine 1.28 ng/dl (0.61-1.60)
[2025-05-18 12:44] LABS: Hemoglobin A1C 5.5 % (4.5-5.6)
[2025-05-18] MEDS: MAGNESIUM SULFATE / D5W 1 GM/100 ML BAG IV SCH (13:21)
[2025-05-18 15:13] LABS: Appearance Urine Clear (Clear); Glucose Urine UA Negative (Negative)
[2025-05-18 15:41] LABS: Epithelial Cell Urine 0-2 /hpf (0-2)
--- NOTE | 2025-05-18 16:03 | XCELERA ---
[id number]
--- NOTE | 2025-05-18 16:04 | Electrocardiogram Report ---
Test Reason : Blood Pressure : */* mmHG Vent. Rate : 86 BPM Atrial Rate : 86 BPM P-R Int : 202 ms QRS Dur : 130 ms QT Int : 376 ms P-R-T Axes : 59 39 12 degrees QTcB Int : 449 ms Normal sinus rhythm Right bundle branch block Abnormal ECG No previous ECGs available Confirmed by Jd Reyna ([id number]) on 05/18/2025 4:03:57 PM Referred By: REFERRED SELF Confirmed By: Jd Reyna
[2025-05-18 16:22] LABS: Amphetamines+Metham, Urine Pos (Neg); MDMA (Ecstacy), Urine Pos (Neg); Marijuana, Urine Neg (Neg)
[2025-05-18] MEDS: DEXTROAMPHETAMINE/AMPHETAMINE ER 10 MG CAP PO SCH (21:35)
[2025-05-18] MEDS: HEPARIN SOD 5,000 UNIT/0.5 ML VIAL SQ SCH (21:35)
[2025-05-18] MEDS: TAMSULOSIN HCL 0.4 MG CAP PO SCH (21:35)
[2025-05-19 07:49] LABS: Hematocrit (blood only) 39.5 % (42.0-52.0); Hemoglobin 13.2 g/dl (14.0-18.0); Mean Corpuscular Hemoglobin 29.7 pg (25.0-34.0); Mean Corpuscular Volume 88.8 fL (80.0-100.0); Platelet Count 189 K/uL (130-400); RDW Standard Deviation 44.8 fL (36.4-46.3); Red Blood Count 4.45 M/uL (4.70-6.10); White Blood Count 5.53 K/ul (4.8-10.8)
[2025-05-19 08:07] LABS: Anion Gap 4.0 (3-11); Blood Urea Nitrogen 17.0 mg/dl (6-23); Calcium 7.9 mg/dl (8.6-10.3); Carbon Dioxide 24.0 mmol/L (21-32); Chloride 111.0 mmol/L (98-107); Creatinine Clr Calc Pharmacy 85.3 ml/min; Glucose 92.0 mg/dl (70-99(Fasting)); Magnesium 2.1 mg/dl (1.7-2.4); Potassium 4.5 mmol/L (3.5-5.1); Sodium 139.0 mmol/L (136-145)
[2025-05-19] MEDS: ASPIRIN 81 MG ECTAB PO SCH (08:35)
--- NOTE | 2025-05-19 12:21 | Discharge Summary ---
Discharge Summary Date of Service May 19, 2025 Principal Dx & Hospital Course #1 = Principal Diagnosis (1) Syncope: (2) Hypotension: (3) SHEY (acute kidney injury): (4) Hyperglycemia: (5) Pulmonary nodule: Plan 70 year old male with PMH significant for prediabetes, hypertension, history of SVT s/p ablation (2018), history of hyperlipidemia, depression, ADHD, elevated PSA, JULIET on CPAP and GERD who presented to the ED on 05/18/2025 after a syncopal episode. Syncope Patient presented with syncopal episode likely due to dehydration iso poor PO intake x2 days Head and cervical spine CT negative Chest CTA negative for PE but incidental pulmonary nodule discovered Labs grossly unremarkable EKG unremarkable Telemetry revealed NSR with occasional PVCs and one run of PAT Echo unremarkable Orthostatic vitals negative Patient educated on importance of adequate hydration to prevent recurrence Hypotension BP 80-90/50-60s on initial presentation Received 4L fluids in total BP normalized Home lisinopril held Advised patient to monitor blood pressure and hold lisinopril if SBP <100 SHEY, resolved Creat 1.86 on initial presentation Likely secondary to dehydration Normalized with IV fluids Pulmonary nodule History of tobacco use CT chest revealed lobulated cavitary 2.2x1.4cm RLL nodular opacity could be infectious or neoplastic Labs and review of systems not concerning for infection Pulmonary consulted and recommending follow up CT scan in no later than 6-8 weeks Advise PCP orders CT scan at hospital follow up appointment next week JULIET on CPAP Continue CPAP HS GERD Continue PPI Elevated PSA Patient notes PSA of 6.1 Following with Urology outpatient Continue Flomax Patient seen in collaboration with Dr. Estrada. Please see addendum. Notes For Next Care Provider 70 year old male admitted at [facility] after a syncopal episode. Likely due to dehydration in setting of poor PO intake. Workup unremarkable aside from incidental finding of pulmonary nodule on CT chest concerning for possible malignancy. Advise follow up CT scan in 6-8 weeks, no later per Pulmonology. Encourage hydration to prevent recurrence of syncope. Medication Changes From Visit None Admission HPI Per Admitting Provider 70 year old male with PMH significant for prediabetes, hypertension, history of SVT s/p ablation (2018), hyperlipidemia, depression, ADHD, elevated PSA, JULIET on CPAP and GERD who presented to the ED on 05/18/2025 after a syncopal episode this morning. Patient is from [place], [place] and traveled to [place] yesterday for a local conference. He reports all he consumed yesterday was coffee and woke up this morning feeling dizzy. After waking, he took a shower where he had to sit down because of dizziness. He went to a colleague's hotel to get breakfast with her and consumed orange juice, coffee, and two glasses of water. Notes feeling weak with walking. Continued to feel dizzy after breakfast and attempted to walk back to colleague's hotel room to rest. Stopped along the way to lean against a counter while his colleague went to get him a wheelchair. He had a syncopal episode while waiting for the wheelchair. Colleague did not witness the fall but heard it. Colleague reports it took patient 90 seconds to regain consciousness. He appeared pale. She helped him to her hotel room and notes he was "in and out." He was being evaluated by medical staff when he had one episode of vomiting. Brought to the ED for further evaluation. In the ED, patient notes he is feeling much better. He reports he does not do a good job of hydrating and notes this is his third episode of getting dizzy because of dehydration. He usually can drink a lot of water and the dizziness will resolve. This is the first time he has ever passed out. Currently denies dizziness, lightheadedness, chest pain, SOB, abdominal pain, N/V, fevers, chills, cough, cold symptoms, night sweats, unintentional weight loss. He denies any cardiac disease aside from history of SVT s/p ablation. Notes family history of CHF. Reports recent elevated PSA level for which he is following with Urology outpatient. Discharge Exam General/Psych: WD/WN, sitting up in bed, NAD, conversing easily Head: normocephalic, atraumatic Eyes: normal inspection, PERRL, conjunctivae pink ENT: external ear and nose normal, oropharynx normal Neck: normal visual inspection, trachea midline Respiratory: normal respiratory effort, lungs clear to auscultation, no wheeze/rales/rhonchi, no accessory muscle use Cardiovascular: regular rate and rhythm, no murmur/rub/gallop Extremities: no cyanosis or clubbing, normal peripheral pulses, no BLE edema Abdomen/GI: normal bowel sounds, soft, nontender Neurologic/MSK: A+Ox3, motor strength 5/5, moves all extremities Skin: no rashes, normal color, warm and dry Updated Medication List Medication Instructions Recorded Confirmed Type aspirin 81 mg tablet 81 mg PO DAILY 05/18/25 05/18/25 History bupropion HCl 300 mg 24 hr tablet, 300 mg PO DAILY 05/18/25 05/18/25 History extended release dextroamphetamine-amphetamine ER 30 mg PO BID 05/18/25 05/18/25 History 30 mg 24hr capsule,extend release lisinopril 20 mg tablet 20 mg PO DAILY 05/18/25 05/18/25 History meloxicam 15 mg tablet 15 mg PO DAILY PRN Pain 05/18/25 05/18/25 History omeprazole 40 mg capsule,delayed 40 mg PO DAILY 05/18/25 05/18/25 History release semaglutide 1 mg/dose (4 mg/3 mL) 0 mg subcut 05/18/25 History subcutaneous pen injector (Ozempic) tamsulosin 0.4 mg capsule 0.8 mg PO HS 05/18/25 05/18/25 History Hospital Stay Data Consultations 05/18/25 11:02 ED Decision to Admit Stat 05/19/25 08:26 Consult Pulmonology Routine Diagnostic Imagining Performed Chest X-Ray 05/18/25 09:35 XR chest 1V portable CLINICAL HISTORY: Chest pain, nonspecific COMPARISON STUDY: None FINDINGS: Heart size and pulmonary vasculature are normal. No consolidation or pleural effusion. No pneumothorax. IMPRESSION: No acute findings. ACT 112: Negative or not required by law. Electronically signed by: Edgard Justice M.D. 05/18/2025 9:[address] 05/18/25 09:35 CT head/brain wo con CLINICAL HISTORY: hunt/syncope. TECHNIQUE: Multiple axial CT images of the head were obtained without contrast. A dose lowering technique was utilized adhering to the principles of ALARA. CT DOSE: 2043.4 mGy.cm COMPARISON: None FINDINGS: No intracranial hemorrhage seen. No mass effect, midline shift, or hyd rocephalus. No skull fracture seen. Visualized paranasal sinuses and mastoid air cells are clear. IMPRESSION: No acute findings. ACT 112: Negative or not required by law. The above report was generated using voice recognition software. It may contain grammatical, syntax or spelling errors. Electronically signed by: Edgard Justice M.D. 05/18/2025 10:[address] 05/18/25 09:55 CT cervical spine wo con CLINICAL HISTORY: 70 years-old Male with syncope. Acute neck pain status post syncope with hypertension COMPARISON: Head CT of same day TECHNIQUE: Multiple axial CT images of the cervical spine were obtained without contrast. A dose lowering technique was utilized adhering to the principles of ALARA. FINDINGS: Straightening of the normal cervical lordosis. Multilevel degenerative changes include moderate to severe disc space narrowing at several levels along with severe multilevel facet arthrosis. Multilevel central canal and neural foraminal stenosis, suboptimally evaluated by CT technique. Atherosclerosis of the carotid bulbs. The cervical soft tissues appear unremarkable. Multinodular thyroid. The visualized lung apices appear clear. IMPRESSION: No acute cervical spine fracture or subluxation. ACT 112: Negative or not required by law. The above report was generated using voice recognition software. It may contain grammatical, syntax or spelling errors. Electronically signed by: Cortez Mendoza M.D. 05/18/2025 10:33 AM Chest CTA 05/18/25 09:55 CT ANGIOGRAM OF THE CHEST CLINICAL HISTORY: Syncope. Hypotension. Evaluate for pulmonary embolus. COMPARISON STUDY: Chest radiograph May 18, 2025. TECHNIQUE: Following the IV administration of 120 cc of Optiray 320, CT angiogram of the chest was performed from the upper abdomen to the thoracic inlet utilizing the pulmonary embolus protocol. Images are reviewed in the axial, sagittal, and coronal planes. 3-D MIPS images are created and assessed. IV contrast was administered without complication. A dose lowering technique was utilized adhering to the principles of ALARA. FINDINGS: No pulmonary emboli are identified. There is no thoracic aortic dissection. The heart is moderately enlarged. There is no pericardial effusion. There is moderate coronary artery calcification. Central airways are patent. No pneumothorax or pleural effusion is present. Note is made of a lobulated cavitary 2.2 x 1.4 cm right lower lobe nodular opacity on image 119 of 226. Ground glass opacities within the lungs favor atelectasis. Central airways are patent. Slight loss of height of the superior endplate of T5 is likely chronic. No acute fractures are identified within the visualized ribs. There are no acute thoracic spine fractures. The stomach is mildly distended and fluid-filled. IMPRESSION: 1. No pulmonary emboli identified. 2. Moderate cardiomegaly and coronary artery calcification. 3. Lobulated cavitary 2.2 x 1.4 cm right lower lobe nodular opacity. This is indeterminate and could be infectious or neoplastic. A short-term follow-up chest CT in one month is recommended. ACT 112: Positive. There are findings on this exam that require communication between the performing entity and the patient following Patient Test Result Information Act ([place] Act 112) guidelines. Electronically signed by: Frederick Agudelo M.D. 05/18/2025 10:32 AM Pending Results Patient Have Any Pending Studies at Discharge: Yes Discharge Instructions Given to Patient (Per Discharging Provider) You presented to the hospital after having a syncopal episode yesterday. This was likely caused by dehydration. You were treated with IV fluids and are feeling much better today. We performed an echocardiogram, which showed normal heart function. Your heart rhythm was monitored and there were no signs of arrhythmias, or abnormal heart rhythm. Your labs are all normal today. It is very important that you adequately hydrate to prevent this from happening again. Your blood pressure was low when you came to the hospital, also likely because of dehydration. Your blood pressure returned to normal with IV fluids but we did not give your lisinopril while you were here. We recommend you check your blood pressure at home and do not take your lisinopril if your blood pressure is low with the top reading below 100. You had a [address] scan of your chest, which revealed no blood clot in the lungs, but did show a nodule in your lungs that could be cancerous. You were evaluated by a Pulmonary doctor who recommended a follow up CT scan in 6-8 weeks at the latest. MEDICATION CHANGES: None SUMMARY OF TEST RESULTS: Head CT normal Cervical spine CT with no fracture Chest x-ray normal Chest CT scan with plaque build up in coronary arteries and lung nodule as discussed above PENDING TEST RESULTS: Blood culture final results - preliminary negative RECOMMENDATIONS FOR FOLLOW-UP: Please follow up with your PCP after hospitalization on 05/25/2025 at 8:45am You need to make sure you get a follow up CT scan of your chest no later than 6- 8 weeks - please ask your PCP to order this scan at your appointment next week OTHER INSTRUCTIONS: Seek medical attention if you have: * temperature above 101 * chest pain or trouble breathing * abdominal pain, nausea, vomiting * diarrhea, dark stools or bloody stools * any unanswered questions or concerns Call 911 if symptoms are severe. It has been a pleasure taking care of you. Please take care of yourself. If you have any questions regarding your recent hospitalization please contact [facility] and request Krishan Lyles @ [phone]. Total Time Total Time Spent Total Time Spent (In Minutes): I spent a total of 35 minutes coordinating, documenting and providing care for this patient excluding time spent in the performance of separately billed serv ices or time spent by another provider/QHP. Supervising Physician Co-Signing Physician Notes 05/19/2025 The patient was seen and examined in medical telemetry unit He was admitted with syncopal episode that happened earlier this morning Seem like vasovagal syncope with history of not drinking enough food and fluid the day before He has been feeling much better and no more episodes of syncope or presyncope in the hospital On examination Remains hemodynamically stable No orthostatic changes noted Chest was clear to auscultate bilaterally HeartS1-S2, regular and no murmur Abdomenbenign Extremitiesno edema CNSalert, awake and oriented x 3 no focal sensory or motor deficit appreciated His labs, medications and imaging studies reviewed Notable findings in the lung with Nodule involving the right lower Lobepulmonary evaluated and recommendations were given He did not have any arrhythmias and echo remains unremarkable Agree with assessment plan as outlined above by SANTA Bernardo and take the full responsibility care in the hospital DR Amparo Estrada
--- NOTE | 2025-05-19 15:48 | Pulmonary Consultation ---
Date of Consultation May 19, 2025 Assessment & Plan (1) Right lower lobe pulmonary nodule: Differential for this nodule is broad, but malignancy is of highest concern at this time. Recommend repeat outpatient CT chest with contrast and follow-up with pulmonary medicine locally. CT can be ordered as follow-up in 6 to 8 weeks. Patient denies any overt contacts with individuals who may have had tuberculosis. Active TB felt to be less likely at this time. Aspiration less likely a small given lack of pneumonia symptoms. Okay to be discharged from pulmonary perspective at this time. Thank you for the consult. I personally spent 55 minutes on the date of service in activities related to this patient's encounter, including 30 minutes of counseling with patient regarding treatment plan and 25 minutes of clinical review of lab results and documentation. I did group counselor the patient regarding their diagnosis and treatment plan and they expressed understanding. This note was dictated using voice recognition software and may include grammatical errors, extra words, word substitutions and other inaccuracies due to errors in the voice recognition software and differences in speech patterns. History of Present Illness Reason for Consultation: Incidental lobulated cavitary 2.2 x 1.4 cm right lower lobe nodular opacity. Attending Physician: Tres Estrada MD History of Present Illness 70-year-old male with a history of tobacco abuse for a total of 20 pack years and quit smoking at the age of 41 presenting to the hospital due to a syncopal episode. During his workup he underwent a chest CTA which I personally reviewed. Moderate coronary artery calcifications and cardiomegaly was noted. There was an incidental lobulated cavitary lesion in the right lower lobe superior segment measuring 2.2 x 1.4 cm. Patient denies any B symptoms aside for occasional night sweats. Weight and appetite has been stable. He denies any respiratory symptoms such as shortness of breath or cough. He was here on a conference. 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 Allergies Allergy/AdvReac Type Severity Reaction Status Date / Time codeine Allergy Itching Verified 05/18/25 12:11 Home Medications Medication Instructions Recorded Confirmed Type aspirin 81 mg tablet 81 mg PO DAILY 05/18/25 05/18/25 History bupropion HCl 300 mg 24 hr tablet, 300 mg PO DAILY 05/18/25 05/18/25 History extended release dextroamphetamine-amphetamine ER 30 mg PO BID 05/18/25 05/18/25 History 30 mg 24hr capsule,extend release lisinopril 20 mg tablet 20 mg PO DAILY 05/18/25 05/18/25 History meloxicam 15 mg tablet 15 mg PO DAILY PRN Pain 05/18/25 05/18/25 History omeprazole 40 mg capsule,delayed 40 mg PO DAILY 05/18/25 05/18/25 History release semaglutide 1 mg/dose (4 mg/3 mL) 0 mg subcut 05/18/25 History subcutaneous pen injector (Ozempic) tamsulosin 0.4 mg capsule 0.8 mg PO HS 05/18/25 05/18/25 History Patient History Medical History (Updated 05/19/25 @ 15:46 by Vijay Banegas MD) ADHD History of supraventricular tachycardia GERD (gastroesophageal reflux disease) Hyperlipidemia Hypertension Elevated PSA Depression Prediabetes Surgical History (Updated 05/18/25 @ 12:16 by SANTA Thomas) S/P ablation operation for arrhythmia for SVT in 2018 Family History (Updated 05/18/25 @ 12:17 by SANTA Thomas) Mother CHF (congestive heart failure) Father CHF (congestive heart failure) Social History (Updated 05/18/25 @ 12:18 by SANTA Thomas) Smoking Status: Former smoker Tobacco Type: Cigarettes Age Started Using Tobacco: 29; Age Quit Using Tobacco: 49; packs per day: 1; Hx Alcohol Use: No Hx Substance Use: No Preferred Language: Macedonian Communication Ability: Effective Kitchen Bath Designer Required: No Beliefs That Will Affect Care: None Current Living Situation: Alone Other Information That Helps Us Care for You: No Feels Safe at Home: Yes Physical Activity Frequency: 3-4 Times per Week Assistive Devices: CPAP Review of Systems Review of Systems: All systems reviewed & are unremarkable except as noted in HPI & below Physical Exam Physical Exam: Constitutional: Patient appears to be of their stated age. Patient is in no apparent distress. Patient is well-developed. Eyes: Pupils are equal round and reactive to light. Conjunctivae are normal. Anicteric sclera. Ears nose, mouth and throat: Mallampati class 2. Normal posterior oropharynx. Uvula is midline. Neck: Trachea is midline. Visual inspection is normal. Respiratory: Clear to auscultation bilaterally. No use of accessory muscles. No significant clubbing noted. Cardiovascular: Regular rate and rhythm. No murmurs. No edema. Gastrointestinal: Normal bowel sounds, soft, nontender and nondistended. No hepatosplenomegaly noted. Musculoskeletal: No cyanosis. Patient is able to move all extremities. Strength is 5 out of 5 in the upper and lower extremities. Skin: No rashes, warm dry and intact. Neurologic: No obvious focal neurological deficits seen. Psychiatric: Alert and oriented x3 with a euthymic affect. Results & Data Results & Data Vital Signs (Past 12 Hours) Vital Signs Temp Pulse Pulse Resp BP Pulse Ox O2 Del Method 05/19/25 12:29 75 05/19/25 11:16 37.0 C 79 18 118/76 96 Room Air 05/19/25 07:45 36.7 C 80 18 119/76 95 Room Air 05/19/25 04:07 36.6 C 76 20 103/68 96 Room Air PG Care Time/CCT Total # of Minutes Spent Total Time Spent with Patient: Total time spent is greater than 50% in coordination of care (as documented) at patient's floor/unit and/or counseling patient: Coding Level of Care Code 60268 INT INP/OBS CARE 2/55MIN Diagnoses Right lower lobe pulmonary nodule R91.1
[2025-05-24 08:42] LABS: Amphetamine Urine, Confirm >15000 ng/mL (<250); MDA negative; MDEA negative; MDMA (Ecstasy) Urine, Confirm negative; Methamphetamine, Ur Confirm NEGATIVE ng/mL (<250)
== END 2025-05-19 16:43 | disposition home or self-care (01) ==
LOC: ED 09:30 → EDINP 09:30 → SUATTDRO 11:26 → 2W 11:56